=== PATIENT | male | born 1970 | race Caucasian/White ===

== ENCOUNTER 2022-07-02 10:42 | Inpatient (IN) | payer OTHER ==
[2022-07-02 11:20] VITALS: BMI 20.7
[2022-07-02] MEDS ORDERED: LORazepam 1 MG TABLET PO PRN (11:49)
[2022-07-02] MEDS ORDERED: DICYCLOMINE HCL 10 MG CAPSULE PO PRN (11:49)
[2022-07-02] MEDS ORDERED: cloNIDine HCL 0.1 MG TABLET PO ONE (11:49)
[2022-07-02] MEDS ORDERED: BUPRENORPHINE HCL 150 MCG, BUPRENORPHINE HCL 75 MCG BC PRN (11:49)
[2022-07-02] MEDS ORDERED: MAG HYDROX/AL HYDROX/SIMETH 30 ML UNIT-DOSE CUP PO PRN (11:49)
[2022-07-02] MEDS ORDERED: LOPERAMIDE HCL 2 MG CAPSULE PO PRN (11:49)
[2022-07-02] MEDS ORDERED: NICOTINE 10 MG CARTRIDGE (INHALER) IH PRN (11:49)
[2022-07-02] MEDS ORDERED: MAGNESIUM HYDROX 2400MG/30ML ORAL SUSPENSION 30 ML CUP PO PRN (11:49)
[2022-07-02] MEDS ORDERED: BACLOFEN 10 MG TABLET (FP) PO PRN (11:49)
[2022-07-02] MEDS ORDERED: ONDANSETRON *ODT* 4 MG TABLET SL PRN (11:49)
[2022-07-02] MEDS ORDERED: IBUPROFEN 400 MG TABLET (FP) PO PRN (11:49)
[2022-07-02] MEDS ORDERED: MAGNESIUM CITRATE 300 ML BOTTLE PO PRN (11:49)
[2022-07-02] MEDS ORDERED: BUPRENORPHINE HCL 150 MCG, BUPRENORPHINE HCL 75 MCG BC ONE (11:49)
[2022-07-02] MEDS ORDERED: BENZOCAINE/MENTHOL (CHLORASEPTIC ) LOZENGE MM PRN (11:49)
[2022-07-02] MEDS ORDERED: BISMUTH SUBSALICYLATE 524 MG/30 ML PO PRN (11:49)
[2022-07-02] MEDS ORDERED: ACETAMINOPHEN 325 MG TABLET (FP) PO PRN ×2 (11:49)
[2022-07-02] MEDS ORDERED: LORazepam 2 MG TABLET PO ONE (12:45)
[2022-07-02] MEDS: NICOTINE 21 MG/24 HOURS TOPICAL PATCH TD SCH (13:31)
[2022-07-02] MEDS: IBUPROFEN 600 MG TABLET (FP) PO PRN (13:43)
[2022-07-02] MEDS ORDERED: cloNIDine HCL 0.1 MG TABLET PO PRN (15:49)
[2022-07-02] MEDS: LORazepam 2 MG TABLET PO SCH ×2 (17:43→22:07)
[2022-07-02] MEDS: THIAMINE HCL 100 MG TABLET (FP) PO SCH (22:07)
[2022-07-02] MEDS: MELATONIN 5 MG TABLETS PO SCH (22:08)
[2022-07-03] MEDS ORDERED: BUPRENORPHINE HCL 150 MCG, BUPRENORPHINE HCL 75 MCG BC PRN
[2022-07-03] MEDS: IBUPROFEN 600 MG TABLET (FP) PO PRN ×2 (01:12→17:51)
[2022-07-03] MEDS ORDERED: BUPRENORPHINE HCL 150 MCG, BUPRENORPHINE HCL 75 MCG BC SCH (06:00)
[2022-07-03] MEDS: LORazepam 2 MG TABLET PO SCH ×4 (06:45→22:07)
[2022-07-03] MEDS ORDERED: methaDONE HCL 10 MG TABLET (FOR DETOX USE ONLY) PO ONE ×2 (09:06→10:00)
[2022-07-03] MEDS ORDERED: PNEUMOC 20-VAL CONJ-DIP CRM/PF 0.5 ML SYRINGE IM ONE (10:00)
[2022-07-03] MEDS: PRENATAL VITAMINS W/ FOLIC ACID TABLET (FP) PO SCH (10:26)
[2022-07-03] MEDS: NICOTINE 21 MG/24 HOURS TOPICAL PATCH TD SCH (10:30)
[2022-07-03 10:32] LABS: ALBUMIN 3.4 g/dl (3.4-5.0)
[2022-07-03 10:35] LABS: CREATININE 0.6 mg/dL (0.55-1.3)
[2022-07-03 10:37] LABS: BILIRUBIN,TOTAL 0.4 mg/dL (0.2-1); HEMATOCRIT 37.9 % (35.4-49); HEMOGLOBIN 12.9 GM/dL (11.7-16.9); MCH 30.5 pg (25.7-33.7); MEAN CELL VOLUME 89.7 fl (80-96); MEAN PLT VOLUME 7.6 fl (7.5-11.1); PLATELET COUNT 394 10^3/uL (134-434); RBC 4.23 M/mm3 (4.00-5.60); RDW 13.1 % (11.9-15.9); TOT PROT 6.4 g/dl (6.4-8.2); WHITE BLOOD COUNT 6.2 K/mm3 (4.0-10.0)
[2022-07-03 11:25] LABS: HIV INTERPRETATION NEGATIVE (NEGATIVE)
[2022-07-03] MEDS: MELATONIN 5 MG TABLETS PO SCH (22:07)
[2022-07-03] MEDS: THIAMINE HCL 100 MG TABLET (FP) PO SCH (22:07)
[2022-07-04] MEDS: LORazepam 1 MG TABLET PO SCH ×4 (05:12→22:23)
[2022-07-04] MEDS: IBUPROFEN 600 MG TABLET (FP) PO PRN ×2 (05:13→22:25)
[2022-07-04] MEDS ORDERED: BUPRENORPHINE HCL 450 MCG FILM BC SCH (06:00)
[2022-07-04] MEDS ORDERED: methaDONE HCL 10 MG TABLET (FOR DETOX USE ONLY) PO ONE (10:00)
[2022-07-04] MEDS: PRENATAL VITAMINS W/ FOLIC ACID TABLET (FP) PO SCH (10:09)
[2022-07-04] MEDS: NICOTINE 21 MG/24 HOURS TOPICAL PATCH TD SCH (10:10)
[2022-07-04] MEDS: THIAMINE HCL 100 MG TABLET (FP) PO SCH (22:23)
[2022-07-04] MEDS: MELATONIN 5 MG TABLETS PO SCH (22:23)
[2022-07-05] MEDS ORDERED: LORazepam 0.5 MG TABLET PO PRN
[2022-07-05] MEDS: LORazepam 0.5 MG TABLET PO SCH ×4 (05:13→22:18)
[2022-07-05] MEDS ORDERED: BUPRENORPHINE/NALOXONE 4 MG/1 MG FILM PACKET SL SCH (06:00)
[2022-07-05] MEDS ORDERED: methaDONE HCL 10 MG TABLET PO ONE (10:00)
[2022-07-05] MEDS: PRENATAL VITAMINS W/ FOLIC ACID TABLET (FP) PO SCH (10:05)
[2022-07-05] MEDS: NICOTINE 21 MG/24 HOURS TOPICAL PATCH TD SCH (10:05)
[2022-07-05] MEDS: THIAMINE HCL 100 MG TABLET (FP) PO SCH (22:19)
[2022-07-05] MEDS: MELATONIN 5 MG TABLETS PO SCH (22:19)
[2022-07-06] MEDS ORDERED: LORazepam 0.5 MG TABLET PO ONE (05:00)
[2022-07-06] MEDS ORDERED: BUPRENORPHINE/NALOXONE 8 MG/2 MG FILM PACKET SL ONE (06:00)
[2022-07-06 09:12] VITALS: RESP 18
[2022-07-06] MEDS: PRENATAL VITAMINS W/ FOLIC ACID TABLET (FP) PO SCH (10:34)
[2022-07-06] MEDS: NICOTINE 21 MG/24 HOURS TOPICAL PATCH TD SCH (10:35)
[2022-07-06 13:17] VITALS: BP 102/64; PULSE 59; TEMP 98.1
== END 2022-07-06 17:06 | disposition other institution (70) | DRG 773 ==
LOC: YASAS 10:42 → Y6N 12:02
PROVIDERS: ADMIT Surgery; ATTEND Surgery
PROC: HZ2ZZZZ Detoxification Services for Substance Abuse Treatment (ICD-10-PCS; principal; 2022-07-02)
DX: F11.23 Opioid dependence with withdrawal (principal); F10.230 Alcohol dependence with withdrawal, uncomplicated; F14.20 Cocaine dependence, uncomplicated; F17.210 Nicotine dependence, cigarettes, uncomplicated; F19.24 Other psychoactive substance dependence with psychoactive substance-induced mood disorder; Z56.0 Unemployment, unspecified
CPT/HCPCS: 36415; 80053; 83036; 85027; 86780; 87389; 87811; 90677; 93005; 93010; C9803-CS; J0475; U0003; U0005

== ENCOUNTER 2022-07-06 17:25 | Inpatient (IN) | payer OTHER ==
[2022-07-06] MEDS ORDERED: P-EPHED 60MG/TRIPROLIDI 2.5MG TABLET PO PRN (17:41)
[2022-07-06] MEDS ORDERED: BENZOCAINE/MENTHOL (CHLORASEPTIC ) LOZENGE MM PRN (17:41)
[2022-07-06] MEDS ORDERED: NICOTINE 10 MG CARTRIDGE (INHALER) IH PRN (17:41)
[2022-07-06] MEDS ORDERED: guaiFENesin 200 MG/10 ML 10 ML UNIT-DOSE CUPS PO PRN (17:41)
[2022-07-06] MEDS ORDERED: ACETAMINOPHEN 325 MG TABLET (FP) PO PRN (17:41)
[2022-07-06] MEDS ORDERED: MAG HYDROX/AL HYDROX/SIMETH 30 ML UNIT-DOSE CUP PO PRN (17:41)
[2022-07-06] MEDS ORDERED: LOPERAMIDE HCL 2 MG CAPSULE PO PRN (17:41)
[2022-07-06] MEDS ORDERED: MAGNESIUM HYDROX 2400MG/30ML ORAL SUSPENSION 30 ML CUP PO PRN (17:41)
[2022-07-06] MEDS ORDERED: MAGNESIUM CITRATE 300 ML BOTTLE PO PRN (17:41)
[2022-07-06] MEDS: THIAMINE HCL 100 MG TABLET (FP) PO SCH (21:10)
[2022-07-06] MEDS: MELATONIN 5 MG TABLETS PO SCH (21:10)
[2022-07-06] MEDS: hydrOXYzine PAMOATE 25 MG CAPSULE (FP) PO PRN (21:11)
[2022-07-07] MEDS: hydrOXYzine PAMOATE 25 MG CAPSULE (FP) PO PRN ×3 (06:25→21:11)
[2022-07-07] MEDS: NICOTINE 7 MG/24 HOURS TOPICAL PATCH TD SCH (09:24)
[2022-07-07] MEDS: PRENATAL VITAMINS W/ FOLIC ACID TABLET (FP) PO SCH (09:25)
[2022-07-07] MEDS: IBUPROFEN 400 MG TABLET (FP) PO PRN (09:25)
[2022-07-07] MEDS: METHOCARBAMOL 500 MG TABLET PO PRN ×2 (13:51→21:11)
[2022-07-07] MEDS: MELATONIN 5 MG TABLETS PO SCH (21:11)
[2022-07-07] MEDS: THIAMINE HCL 100 MG TABLET (FP) PO SCH (21:11)
[2022-07-08] MEDS: hydrOXYzine PAMOATE 25 MG CAPSULE (FP) PO PRN ×2 (03:53→09:43)
[2022-07-08] MEDS: PRENATAL VITAMINS W/ FOLIC ACID TABLET (FP) PO SCH (09:41)
[2022-07-08] MEDS: METHOCARBAMOL 500 MG TABLET PO PRN ×2 (09:43→21:06)
[2022-07-08] MEDS: IBUPROFEN 400 MG TABLET (FP) PO PRN (09:43)
[2022-07-08] MEDS: NICOTINE 7 MG/24 HOURS TOPICAL PATCH TD SCH (09:45)
[2022-07-08] MEDS ORDERED: BUPRENORPHINE/NALOXONE 2 MG/0.5 MG FILM PACKET SL ONE (14:34)
[2022-07-08] MEDS: THIAMINE HCL 100 MG TABLET (FP) PO SCH (21:06)
[2022-07-08] MEDS: MELATONIN 5 MG TABLETS PO SCH (21:06)
[2022-07-08] MEDS: QUEtiapine FUMARATE 50 MG TABLET PO SCH (21:07)
[2022-07-09] MEDS: PRENATAL VITAMINS W/ FOLIC ACID TABLET (FP) PO SCH (10:00)
[2022-07-09] MEDS: BUPRENORPHINE/NALOXONE 4 MG/1 MG FILM PACKET SL SCH (10:01)
[2022-07-09] MEDS: NICOTINE 7 MG/24 HOURS TOPICAL PATCH TD SCH (10:01)
[2022-07-09] MEDS: MELATONIN 5 MG TABLETS PO SCH (21:05)
[2022-07-09] MEDS: THIAMINE HCL 100 MG TABLET (FP) PO SCH (21:06)
[2022-07-09] MEDS: QUEtiapine FUMARATE 50 MG TABLET PO SCH (21:06)
[2022-07-10] MEDS: PRENATAL VITAMINS W/ FOLIC ACID TABLET (FP) PO SCH (09:39)
[2022-07-10] MEDS: NICOTINE 7 MG/24 HOURS TOPICAL PATCH TD SCH (09:40)
[2022-07-10] MEDS: BUPRENORPHINE/NALOXONE 4 MG/1 MG FILM PACKET SL SCH (09:40)
[2022-07-10] MEDS: IBUPROFEN 400 MG TABLET (FP) PO PRN (21:12)
[2022-07-10] MEDS: THIAMINE HCL 100 MG TABLET (FP) PO SCH (21:13)
[2022-07-10] MEDS: METHOCARBAMOL 500 MG TABLET PO PRN (21:13)
[2022-07-10] MEDS: QUEtiapine FUMARATE 50 MG TABLET PO SCH (21:13)
[2022-07-10] MEDS: MELATONIN 5 MG TABLETS PO SCH (21:13)
[2022-07-10] MEDS: hydrOXYzine PAMOATE 25 MG CAPSULE (FP) PO PRN (21:13)
[2022-07-11] MEDS: NICOTINE 7 MG/24 HOURS TOPICAL PATCH TD SCH (09:59)
[2022-07-11] MEDS: PRENATAL VITAMINS W/ FOLIC ACID TABLET (FP) PO SCH (09:59)
[2022-07-11] MEDS: BUPRENORPHINE/NALOXONE 4 MG/1 MG FILM PACKET SL SCH (10:01)
[2022-07-11] MEDS: MELATONIN 5 MG TABLETS PO SCH (21:02)
[2022-07-11] MEDS: THIAMINE HCL 100 MG TABLET (FP) PO SCH (21:02)
[2022-07-11] MEDS: hydrOXYzine PAMOATE 25 MG CAPSULE (FP) PO PRN (21:02)
[2022-07-11] MEDS: QUEtiapine FUMARATE 50 MG TABLET PO SCH (21:02)
[2022-07-12] MEDS: PRENATAL VITAMINS W/ FOLIC ACID TABLET (FP) PO SCH (09:55)
[2022-07-12] MEDS: BUPRENORPHINE/NALOXONE 4 MG/1 MG FILM PACKET SL SCH (09:55)
[2022-07-12] MEDS: NICOTINE 7 MG/24 HOURS TOPICAL PATCH TD SCH (09:55)
[2022-07-12] MEDS: MELATONIN 5 MG TABLETS PO SCH (21:08)
[2022-07-12] MEDS: METHOCARBAMOL 500 MG TABLET PO PRN (21:08)
[2022-07-12] MEDS: QUEtiapine FUMARATE 50 MG TABLET PO SCH (21:08)
[2022-07-12] MEDS: THIAMINE HCL 100 MG TABLET (FP) PO SCH (21:08)
[2022-07-13] MEDS: PRENATAL VITAMINS W/ FOLIC ACID TABLET (FP) PO SCH (09:23)
[2022-07-13] MEDS: BUPRENORPHINE/NALOXONE 4 MG/1 MG FILM PACKET SL SCH (09:23)
[2022-07-13] MEDS: NICOTINE 7 MG/24 HOURS TOPICAL PATCH TD SCH (09:23)
[2022-07-13] MEDS: MELATONIN 5 MG TABLETS PO SCH (21:08)
[2022-07-13] MEDS: METHOCARBAMOL 500 MG TABLET PO PRN (21:08)
[2022-07-13] MEDS: QUEtiapine FUMARATE 50 MG TABLET PO SCH (21:08)
[2022-07-13] MEDS: THIAMINE HCL 100 MG TABLET (FP) PO SCH (21:08)
[2022-07-14] MEDS: NICOTINE 7 MG/24 HOURS TOPICAL PATCH TD SCH (09:40)
[2022-07-14] MEDS: PRENATAL VITAMINS W/ FOLIC ACID TABLET (FP) PO SCH (09:41)
[2022-07-14] MEDS: BUPRENORPHINE/NALOXONE 4 MG/1 MG FILM PACKET SL SCH (09:41)
[2022-07-14] MEDS: METHOCARBAMOL 500 MG TABLET PO PRN (21:03)
[2022-07-14] MEDS: MELATONIN 5 MG TABLETS PO SCH (21:03)
[2022-07-14] MEDS: THIAMINE HCL 100 MG TABLET (FP) PO SCH (21:03)
[2022-07-14] MEDS: hydrOXYzine PAMOATE 25 MG CAPSULE (FP) PO PRN (21:03)
[2022-07-14] MEDS: QUEtiapine FUMARATE 50 MG TABLET PO SCH (21:03)
[2022-07-15] MEDS: NICOTINE 7 MG/24 HOURS TOPICAL PATCH TD SCH (09:33)
[2022-07-15] MEDS: BUPRENORPHINE/NALOXONE 8 MG/2 MG FILM PACKET SL SCH (09:33)
[2022-07-15] MEDS: PRENATAL VITAMINS W/ FOLIC ACID TABLET (FP) PO SCH (09:34)
[2022-07-15] MEDS: METHOCARBAMOL 500 MG TABLET PO PRN (21:15)
[2022-07-15] MEDS: hydrOXYzine PAMOATE 25 MG CAPSULE (FP) PO PRN (21:15)
[2022-07-15] MEDS: MELATONIN 5 MG TABLETS PO SCH (21:15)
[2022-07-15] MEDS: QUEtiapine FUMARATE 50 MG TABLET PO SCH (21:15)
[2022-07-15] MEDS: THIAMINE HCL 100 MG TABLET (FP) PO SCH (21:15)
[2022-07-16] MEDS: NICOTINE 7 MG/24 HOURS TOPICAL PATCH TD SCH (09:29)
[2022-07-16] MEDS: PRENATAL VITAMINS W/ FOLIC ACID TABLET (FP) PO SCH (09:29)
[2022-07-16] MEDS: BUPRENORPHINE/NALOXONE 8 MG/2 MG FILM PACKET SL SCH (09:30)
[2022-07-16] MEDS: QUEtiapine FUMARATE 50 MG TABLET PO SCH (21:08)
[2022-07-16] MEDS: hydrOXYzine PAMOATE 25 MG CAPSULE (FP) PO PRN (21:08)
[2022-07-16] MEDS: MELATONIN 5 MG TABLETS PO SCH (21:08)
[2022-07-16] MEDS: METHOCARBAMOL 500 MG TABLET PO PRN (21:08)
[2022-07-16] MEDS: THIAMINE HCL 100 MG TABLET (FP) PO SCH (21:08)
[2022-07-17] MEDS: NICOTINE 7 MG/24 HOURS TOPICAL PATCH TD SCH (09:54)
[2022-07-17] MEDS: BUPRENORPHINE/NALOXONE 8 MG/2 MG FILM PACKET SL SCH (09:55)
[2022-07-17] MEDS: PRENATAL VITAMINS W/ FOLIC ACID TABLET (FP) PO SCH (09:55)
[2022-07-17] MEDS: METHOCARBAMOL 500 MG TABLET PO PRN (21:04)
[2022-07-17] MEDS: MELATONIN 5 MG TABLETS PO SCH (21:04)
[2022-07-17] MEDS: THIAMINE HCL 100 MG TABLET (FP) PO SCH (21:04)
[2022-07-17] MEDS: hydrOXYzine PAMOATE 25 MG CAPSULE (FP) PO PRN (21:04)
[2022-07-17] MEDS: QUEtiapine FUMARATE 50 MG TABLET PO SCH (21:04)
[2022-07-18] MEDS: PRENATAL VITAMINS W/ FOLIC ACID TABLET (FP) PO SCH (09:44)
[2022-07-18] MEDS: NICOTINE 7 MG/24 HOURS TOPICAL PATCH TD SCH (09:45)
[2022-07-18] MEDS: BUPRENORPHINE/NALOXONE 8 MG/2 MG FILM PACKET SL SCH (09:45)
[2022-07-18] MEDS: THIAMINE HCL 100 MG TABLET (FP) PO SCH (21:17)
[2022-07-18] MEDS: METHOCARBAMOL 500 MG TABLET PO PRN (21:17)
[2022-07-18] MEDS: hydrOXYzine PAMOATE 25 MG CAPSULE (FP) PO PRN (21:17)
[2022-07-18] MEDS: QUEtiapine FUMARATE 50 MG TABLET PO SCH (21:17)
[2022-07-18] MEDS: MELATONIN 5 MG TABLETS PO SCH (22:04)
[2022-07-19] MEDS: NICOTINE 7 MG/24 HOURS TOPICAL PATCH TD SCH (10:26)
[2022-07-19] MEDS: PRENATAL VITAMINS W/ FOLIC ACID TABLET (FP) PO SCH (10:26)
[2022-07-19] MEDS: BUPRENORPHINE/NALOXONE 8 MG/2 MG FILM PACKET SL SCH (10:26)
[2022-07-19] MEDS: THIAMINE HCL 100 MG TABLET (FP) PO SCH (21:13)
[2022-07-19] MEDS: QUEtiapine FUMARATE 50 MG TABLET PO SCH (21:13)
[2022-07-19] MEDS: MELATONIN 5 MG TABLETS PO SCH (21:14)
[2022-07-19] MEDS: hydrOXYzine PAMOATE 25 MG CAPSULE (FP) PO PRN (21:14)
[2022-07-20] MEDS: PRENATAL VITAMINS W/ FOLIC ACID TABLET (FP) PO SCH (09:31)
[2022-07-20] MEDS: NICOTINE 7 MG/24 HOURS TOPICAL PATCH TD SCH (09:31)
[2022-07-20] MEDS: BUPRENORPHINE/NALOXONE 8 MG/2 MG FILM PACKET SL SCH (09:31)
[2022-07-20] MEDS: hydrOXYzine PAMOATE 25 MG CAPSULE (FP) PO PRN (21:03)
[2022-07-20] MEDS: QUEtiapine FUMARATE 50 MG TABLET PO SCH (21:03)
[2022-07-20] MEDS: THIAMINE HCL 100 MG TABLET (FP) PO SCH (21:03)
[2022-07-20] MEDS: MELATONIN 5 MG TABLETS PO SCH (21:03)
[2022-07-21] MEDS: BUPRENORPHINE/NALOXONE 8 MG/2 MG FILM PACKET SL SCH (09:39)
[2022-07-21] MEDS: NICOTINE 7 MG/24 HOURS TOPICAL PATCH TD SCH (09:39)
[2022-07-21] MEDS: PRENATAL VITAMINS W/ FOLIC ACID TABLET (FP) PO SCH (09:39)
[2022-07-21] MEDS: QUEtiapine FUMARATE 50 MG TABLET PO SCH (21:10)
[2022-07-21] MEDS: MELATONIN 5 MG TABLETS PO SCH (21:10)
[2022-07-21] MEDS: THIAMINE HCL 100 MG TABLET (FP) PO SCH (21:10)
[2022-07-21] MEDS: hydrOXYzine PAMOATE 25 MG CAPSULE (FP) PO PRN (21:10)
[2022-07-22] MEDS: BUPRENORPHINE/NALOXONE 8 MG/2 MG FILM PACKET SL SCH (10:05)
[2022-07-22] MEDS: NICOTINE 7 MG/24 HOURS TOPICAL PATCH TD SCH (10:05)
[2022-07-22] MEDS: PRENATAL VITAMINS W/ FOLIC ACID TABLET (FP) PO SCH (10:05)
[2022-07-22] MEDS: QUEtiapine FUMARATE 50 MG TABLET PO SCH (21:05)
[2022-07-22] MEDS: MELATONIN 5 MG TABLETS PO SCH (21:05)
[2022-07-22] MEDS: THIAMINE HCL 100 MG TABLET (FP) PO SCH (21:05)
[2022-07-22] MEDS: hydrOXYzine PAMOATE 25 MG CAPSULE (FP) PO PRN (21:05)
[2022-07-23] MEDS: PRENATAL VITAMINS W/ FOLIC ACID TABLET (FP) PO SCH (09:33)
[2022-07-23] MEDS: BUPRENORPHINE/NALOXONE 8 MG/2 MG FILM PACKET SL SCH (09:33)
[2022-07-23] MEDS: NICOTINE 7 MG/24 HOURS TOPICAL PATCH TD SCH (09:33)
[2022-07-23] MEDS: QUEtiapine FUMARATE 50 MG TABLET PO SCH (21:09)
[2022-07-23] MEDS: MELATONIN 5 MG TABLETS PO SCH (21:09)
[2022-07-23] MEDS: THIAMINE HCL 100 MG TABLET (FP) PO SCH (21:09)
[2022-07-23] MEDS: METHOCARBAMOL 500 MG TABLET PO PRN (21:09)
[2022-07-23] MEDS: hydrOXYzine PAMOATE 25 MG CAPSULE (FP) PO PRN (21:09)
[2022-07-24] MEDS: NICOTINE 7 MG/24 HOURS TOPICAL PATCH TD SCH (09:49)
[2022-07-24] MEDS: PRENATAL VITAMINS W/ FOLIC ACID TABLET (FP) PO SCH (09:49)
[2022-07-24] MEDS: BUPRENORPHINE/NALOXONE 8 MG/2 MG FILM PACKET SL SCH (09:49)
[2022-07-24] MEDS: QUEtiapine FUMARATE 50 MG TABLET PO SCH (21:05)
[2022-07-24] MEDS: hydrOXYzine PAMOATE 25 MG CAPSULE (FP) PO PRN (21:05)
[2022-07-24] MEDS: MELATONIN 5 MG TABLETS PO SCH (21:06)
[2022-07-24] MEDS: METHOCARBAMOL 500 MG TABLET PO PRN (21:06)
[2022-07-24] MEDS: THIAMINE HCL 100 MG TABLET (FP) PO SCH (21:06)
[2022-07-25] MEDS: NICOTINE 7 MG/24 HOURS TOPICAL PATCH TD SCH (09:55)
[2022-07-25] MEDS: BUPRENORPHINE/NALOXONE 8 MG/2 MG FILM PACKET SL SCH (09:55)
[2022-07-25] MEDS: PRENATAL VITAMINS W/ FOLIC ACID TABLET (FP) PO SCH (09:55)
[2022-07-25] MEDS: QUEtiapine FUMARATE 50 MG TABLET PO SCH (21:04)
[2022-07-25] MEDS: METHOCARBAMOL 500 MG TABLET PO PRN (21:04)
[2022-07-25] MEDS: THIAMINE HCL 100 MG TABLET (FP) PO SCH (21:04)
[2022-07-25] MEDS: hydrOXYzine PAMOATE 25 MG CAPSULE (FP) PO PRN (21:04)
[2022-07-25] MEDS: MELATONIN 5 MG TABLETS PO SCH (21:05)
[2022-07-26] MEDS: NICOTINE 7 MG/24 HOURS TOPICAL PATCH TD SCH (09:58)
[2022-07-26] MEDS: BUPRENORPHINE/NALOXONE 8 MG/2 MG FILM PACKET SL SCH (09:59)
[2022-07-26] MEDS: PRENATAL VITAMINS W/ FOLIC ACID TABLET (FP) PO SCH (09:59)
[2022-07-26] MEDS: THIAMINE HCL 100 MG TABLET (FP) PO SCH (21:01)
[2022-07-26] MEDS: QUEtiapine FUMARATE 50 MG TABLET PO SCH (21:01)
[2022-07-26] MEDS: MELATONIN 5 MG TABLETS PO SCH (21:01)
[2022-07-26] MEDS: hydrOXYzine PAMOATE 25 MG CAPSULE (FP) PO PRN (21:01)
[2022-07-27] MEDS: PRENATAL VITAMINS W/ FOLIC ACID TABLET (FP) PO SCH (10:12)
[2022-07-27] MEDS: NICOTINE 7 MG/24 HOURS TOPICAL PATCH TD SCH (10:12)
[2022-07-27] MEDS: BUPRENORPHINE/NALOXONE 8 MG/2 MG FILM PACKET SL SCH (10:12)
[2022-07-27] MEDS: METHOCARBAMOL 500 MG TABLET PO PRN ×2 (10:13→21:07)
[2022-07-27] MEDS: MELATONIN 5 MG TABLETS PO SCH (21:05)
[2022-07-27] MEDS: THIAMINE HCL 100 MG TABLET (FP) PO SCH (21:05)
[2022-07-27] MEDS: hydrOXYzine PAMOATE 25 MG CAPSULE (FP) PO PRN (21:06)
[2022-07-27] MEDS: QUEtiapine FUMARATE 50 MG TABLET PO SCH (21:06)
[2022-07-28] MEDS: BUPRENORPHINE/NALOXONE 8 MG/2 MG FILM PACKET SL SCH (09:50)
[2022-07-28] MEDS: PRENATAL VITAMINS W/ FOLIC ACID TABLET (FP) PO SCH (09:50)
[2022-07-28] MEDS: NICOTINE 7 MG/24 HOURS TOPICAL PATCH TD SCH (09:50)
[2022-07-28] MEDS: METHOCARBAMOL 500 MG TABLET PO PRN ×2 (09:51→21:04)
[2022-07-28] MEDS: THIAMINE HCL 100 MG TABLET (FP) PO SCH (21:03)
[2022-07-28] MEDS: MELATONIN 5 MG TABLETS PO SCH (21:03)
[2022-07-28] MEDS: QUEtiapine FUMARATE 50 MG TABLET PO SCH (21:04)
[2022-07-28] MEDS: hydrOXYzine PAMOATE 25 MG CAPSULE (FP) PO PRN (21:04)
[2022-07-29] MEDS: NICOTINE 7 MG/24 HOURS TOPICAL PATCH TD SCH (10:00)
[2022-07-29] MEDS: BUPRENORPHINE/NALOXONE 8 MG/2 MG FILM PACKET SL SCH (10:00)
[2022-07-29] MEDS: PRENATAL VITAMINS W/ FOLIC ACID TABLET (FP) PO SCH (10:00)
[2022-07-29] MEDS: METHOCARBAMOL 500 MG TABLET PO PRN ×2 (10:02→21:12)
[2022-07-29] MEDS: hydrOXYzine PAMOATE 25 MG CAPSULE (FP) PO PRN (21:12)
[2022-07-29] MEDS: MELATONIN 5 MG TABLETS PO SCH (21:12)
[2022-07-29] MEDS: THIAMINE HCL 100 MG TABLET (FP) PO SCH (21:12)
[2022-07-29] MEDS: QUEtiapine FUMARATE 50 MG TABLET PO SCH (21:12)
[2022-07-30] MEDS: NICOTINE 7 MG/24 HOURS TOPICAL PATCH TD SCH (09:43)
[2022-07-30] MEDS: PRENATAL VITAMINS W/ FOLIC ACID TABLET (FP) PO SCH (09:43)
[2022-07-30] MEDS: BUPRENORPHINE/NALOXONE 8 MG/2 MG FILM PACKET SL SCH (09:44)
[2022-07-30] MEDS: METHOCARBAMOL 500 MG TABLET PO PRN (21:03)
[2022-07-30] MEDS: QUEtiapine FUMARATE 50 MG TABLET PO SCH (21:03)
[2022-07-30] MEDS: MELATONIN 5 MG TABLETS PO SCH (21:03)
[2022-07-30] MEDS: THIAMINE HCL 100 MG TABLET (FP) PO SCH (21:03)
[2022-07-30] MEDS: hydrOXYzine PAMOATE 25 MG CAPSULE (FP) PO PRN (21:03)
[2022-07-31 08:24] VITALS: RESP 16
[2022-07-31] MEDS: BUPRENORPHINE/NALOXONE 8 MG/2 MG FILM PACKET SL SCH (09:47)
[2022-07-31] MEDS: PRENATAL VITAMINS W/ FOLIC ACID TABLET (FP) PO SCH (09:47)
[2022-07-31] MEDS: NICOTINE 7 MG/24 HOURS TOPICAL PATCH TD SCH (09:48)
[2022-07-31] MEDS: METHOCARBAMOL 500 MG TABLET PO PRN ×2 (09:48→21:00)
[2022-07-31] MEDS: QUEtiapine FUMARATE 50 MG TABLET PO SCH (21:00)
[2022-07-31] MEDS: THIAMINE HCL 100 MG TABLET (FP) PO SCH (21:00)
[2022-07-31] MEDS: hydrOXYzine PAMOATE 25 MG CAPSULE (FP) PO PRN (21:00)
[2022-07-31] MEDS: MELATONIN 5 MG TABLETS PO SCH (21:00)
[2022-08-01] MEDS: PRENATAL VITAMINS W/ FOLIC ACID TABLET (FP) PO SCH (09:58)
[2022-08-01] MEDS: NICOTINE 7 MG/24 HOURS TOPICAL PATCH TD SCH (09:59)
[2022-08-01] MEDS: METHOCARBAMOL 500 MG TABLET PO PRN ×2 (09:59→21:05)
[2022-08-01] MEDS: BUPRENORPHINE/NALOXONE 8 MG/2 MG FILM PACKET SL SCH (10:00)
[2022-08-01] MEDS: hydrOXYzine PAMOATE 25 MG CAPSULE (FP) PO PRN (21:05)
[2022-08-01] MEDS: QUEtiapine FUMARATE 50 MG TABLET PO SCH (21:05)
[2022-08-01] MEDS: MELATONIN 5 MG TABLETS PO SCH (21:05)
[2022-08-01] MEDS: THIAMINE HCL 100 MG TABLET (FP) PO SCH (21:05)
[2022-08-02] MEDS: PRENATAL VITAMINS W/ FOLIC ACID TABLET (FP) PO SCH (09:37)
[2022-08-02] MEDS: NICOTINE 7 MG/24 HOURS TOPICAL PATCH TD SCH (09:38)
[2022-08-02] MEDS: METHOCARBAMOL 500 MG TABLET PO PRN ×2 (09:38→21:14)
[2022-08-02] MEDS: BUPRENORPHINE/NALOXONE 8 MG/2 MG FILM PACKET SL SCH (09:38)
[2022-08-02] MEDS: MELATONIN 5 MG TABLETS PO SCH (21:14)
[2022-08-02] MEDS: QUEtiapine FUMARATE 50 MG TABLET PO SCH (21:14)
[2022-08-02] MEDS: THIAMINE HCL 100 MG TABLET (FP) PO SCH (21:14)
[2022-08-03 06:41] VITALS: TEMP 97.1
[2022-08-03 09:01] VITALS: BP 104/65; PULSE 79
[2022-08-03] MEDS: PRENATAL VITAMINS W/ FOLIC ACID TABLET (FP) PO SCH (09:18)
[2022-08-03] MEDS: BUPRENORPHINE/NALOXONE 8 MG/2 MG FILM PACKET SL SCH (09:19)
[2022-08-03] MEDS: NICOTINE 7 MG/24 HOURS TOPICAL PATCH TD SCH (09:19)
== END 2022-08-03 09:22 | disposition home or self-care (01) | DRG 772 ==
LOC: YASAS 17:25 → Y3E 17:26
PROVIDERS: ADMIT Allergy & Immunology; ATTEND Psychiatry & Neurology Pain Medicine
PROC: HZ42ZZZ Group Counseling for Substance Abuse Treatment, Cognitive-Behavioral (ICD-10-PCS; principal; 2022-07-06)
DX: F10.20 Alcohol dependence, uncomplicated (principal); F11.20 Opioid dependence, uncomplicated; F14.20 Cocaine dependence, uncomplicated; F17.210 Nicotine dependence, cigarettes, uncomplicated